=== PATIENT | female | born 1975 ===

== ENCOUNTER 2019-01-10 13:31 | Emergency (ER) | payer SELFPAY ==
[2019-01-10 13:49] VITALS: BP 156/77
--- NOTE | 2019-01-10 15:12 | Emergency Department Report ---
ED Upper Extremity Inj HPI - General Chief Complaint: Extremity Injury, Upper Stated Complaint: WRIST/FINGER PAIN Time Seen by Provider: 01/10/19 15:10 Source: patient Mode of arrival: Ambulatory Limitations: Language Barrier - History of Present Illness Initial Comments: Patient reports she tripped and fell over lumber in the yard four days ago and injured her hands. She reports pain and swelling in both pinky fingers. MD Complaint: Injury to:: left, right, wrist (right), hand Onset/Timin -: days(s) Other Extremity Injury: Fingers: Left, Right, Wrist: Right Other Injuries: none Handedness: right Place: home Severity scale (0 -10): 5 Improves With: rest Worsens With: movement of extremity Context: fall Associated Symptoms: denies other symptoms. denies: weakness, numbness, neck pain, suspects foreign body, nausea/vomiting, heard/felt popping sensat Treatments Prior to Arrival: other (none) - Related Data Previous Rx's Medication Instructions Recorded Last Taken Type Ibuprofen [Motrin 800 MG tab] 800 mg PO Q8HR PRN #30 tablet 01/10/19 Unknown Rx Allergies Allergy/AdvReac Type Severity Reaction Status Date / Time Insulins Allergy Unknown Verified 01/10/19 13:33 ED Review of Systems ROS: Stated complaint: WRIST/FINGER PAIN Other details as noted in HPI Constitutional: denies: chills, fever Eyes: denies: eye pain, eye discharge, vision change ENT: denies: ear pain, throat pain Respiratory: denies: cough, shortness of breath, wheezing Cardiovascular: denies: chest pain, palpitations Endocrine: no symptoms reported Gastrointestinal: denies: abdominal pain, nausea, diarrhea Genitourinary: denies: urgency, dysuria, discharge Musculoskeletal: joint swelling (bilaterial fifth fingers), arthralgia (right lateral wrist). denies: back pain Skin: denies: rash, lesions Neurological: denies: headache, weakness, paresthesias Psychiatric: denies: anxiety, depression Hematological/Lymphatic: denies: easy bleeding, easy bruising ED Past Medical Hx - Past Medical History Previous Medical History?: Yes Hx Diabetes: Yes - Surgical History Past Surgical History?: No - Social History Smoking Status: Never Smoker Substance Use Type: None - Medications Home Medications: Home Medications Medication Instructions Recorded Confirmed Last Taken Type Ibuprofen [Motrin 800 MG tab] 800 mg PO Q8HR PRN #30 tablet 01/10/19 Unknown Rx ED Physical Exam - General Limitations: Language Barrier General appearance: alert, in no apparent distress - Respiratory Respiratory exam: Present: normal lung sounds bilaterally. Absent: respiratory distress, wheezes, rales, rhonchi, stridor, chest wall tenderness, accessory muscle use, decreased breath sounds, prolonged expiratory - Cardiovascular Cardiovascular Exam: Present: regular rate, normal rhythm, normal heart sounds. Absent: systolic murmur, diastolic murmur, rubs, gallop - Expanded Upper Extremity Exam Left Shoulder Exam: Present: normal inspection, full ROM Upper Arm exam: Present: normal inspection, full ROM Elbow exam: Present: normal inspection, full ROM Forearm Wrist exam: Present: normal inspection, full ROM Hand Wrist exam: Present: tenderness, swelling (PIP and MCP fifth phalanx). Absent: full ROM, abrasion, laceration, ecchymosis, deformity, crepidus, dislocation, erythema, amputation, nail avulsion, subungual hematoma Neuro motor exam: Present: wrist extension intact, thumb opposition intact, thumb IP flexion intact, thumb adduction intact, fingers 2-5 abduction intact Neurosensory exam: Present: 2-point discrimination, radial nerve intact, ulnar nerve intact, median nerve intact Vascular: Present: normal capillary refill, radial pulse (2+), brachial pulse (2+), ulnar pulse (2+). Absent: vascular compromise, Pallo, pulse deficit radia l art, pulse deficit ulnar art, pulse deficit brachial art Right Shoulder Exam: Present: normal inspection, full ROM Upper Arm exam: Present: normal inspection, full ROM Elbow exam: Present: normal inspection, full ROM Forearm Wrist exam: Present: full ROM, tenderness (lateral). Absent: swelling, abrasion, laceration, ecchymosis, deformity, crepidus, dislocation, erythema, tenderness over anatomical snuff box, pain with axial thumb loading Hand Wrist exam: Present: full ROM, tenderness (fifth PIP phalanx). Absent: swelling, abrasion, laceration, ecchymosis, deformity, crepidus, dislocation, erythema, amputation, nail avulsion, subungual hematoma Neuro motor exam: Present: wrist extension intact, thumb opposition intact, thumb adduction intact, fingers 2-5 abduction intact Neurosensory exam: Present: 2-point discrimination, radial nerve intact, ulnar nerve intact, median nerve intact Vascular: Present: normal capillary refill, radial pulse (2+), brachial pulse (2+), ulnar pulse (2+). Absent: vascular compromise, Pallo, pulse deficit radial art, pulse deficit ulnar art, pulse deficit brachial art - Neurological Exam Neurological exam: Present: alert, oriented X3, CN II-XII intact, normal gait, reflexes normal. Absent: motor sensory deficit - Psychiatric Psychiatric exam: Present: normal affect, normal mood - Skin Skin exam: Present: warm, dry, intact, normal color. Absent: rash ED Course Vital Signs 01/10/19 13:45 Temperature 98.3 F Pulse Rate 78 Respiratory 16 Rate Blood Pressure 156/77 O2 Sat by Pulse 100 Oximetry ED Medical Decision Making - Lab Data Vital Signs 01/10/19 13:45 Temperature 98.3 F Pulse Rate 78 Respiratory 16 Rate Blood Pressure 156/77 O2 Sat by Pulse 100 Oximetry - Radiology Data Radiology results: image reviewed BILATERAL HANDS, 3 VIEWS INDICATION: Bilateral hand pain after fall, pain to right and left fifth digits and right wrist.. COMPARISON: None. IMPRESSION: No acute osseous or soft tissue abnormality. No significant DJD. - Medical Decision Making During the course of ED, radiology studies were ordered. The study revealed no acute osseous or soft tissue abnormality or significant DJD. A velcro right wrist splint without spica was placed on the right wrist for comfort. Patient was sent home with a prescription for Ibuprofen, instructed to follow up with the selective referral given at discharge, she verbalized understanding. - Differential Diagnosis Bilaterial Hand Pain, Right Wrist Pain, Fractures Critical care attestation.: If time is entered above; I have spent that time in minutes in the direct care of this critically ill patient, excluding procedure time. ED Disposition Clinical Impression: Bilateral hand pain, Right wrist pain Disposition: - TO HOME OR SELFCARE Is pt being admited?: No Does the pt Need Aspirin: No Condition: Stable Instructions: Wrist Injury (ED) Additional Instructions: Take medication as directed. Follow up with the selective referral given at discharge. Wear the wrist splint for comfort Prescriptions: Ibuprofen [Motrin 800 MG tab] 800 mg PO Q8HR PRN #30 tablet PRN Reason: Pain, Moderate (4-6) Referrals: KATIA LIZARRAGA MD [Staff Physician] - 3-5 Days Forms: Work/School Release Form(ED) Time of Disposition: 16:54
--- NOTE | 2019-01-10 15:51 | XRay Report ---
BILATERAL HANDS, 3 VIEWS INDICATION: Bilateral hand pain after fall, pain to right and left fifth digits and right wrist.. COMPARISON: None. IMPRESSION: No acute osseous or soft tissue abnormality. No significant DJD. Signer Name: Francisco Javier Molina Jr, MD Signed: 01/10/2019 3:46 PM Workstation Name: [id number]
== END 2019-01-10 17:28 | disposition home or self-care (01) ==
LOC: ED 13:31
DX: M25.531 Pain in right wrist (principal); M79.641 Pain in right hand; M79.642 Pain in left hand; E11.9 Type 2 diabetes mellitus without complications; Z79.1 Long term (current) use of non-steroidal anti-inflammatories (NSAID)